=== PATIENT | female | born 1995 | race Caucasian/White ===

== ENCOUNTER 2017-08-04 14:56 | Emergency (ER) | payer MEDICAID ==
--- NOTE | 2017-08-04 15:23 | ED Physician Chart ---
ED Chief Complaint/HPI - Patient Information Date Seen:: 08/04/17 Time Seen:: 15:18 Chief Complaint:: pelvic pain History of Present Illness:: pt here for pains at low mid pelvis and into low back cramps. pt is 3 mo gravid. she took tylenol 3 hrs ago with some relief. she is taking a daily mvi. she had similar pains 1 month ago or so while living in [place] and has a US and then a repeat 1 week later...both times she was give the dx of threatened . pt has now moved to this area but still has no skein bander or appt to see one. ...her first was by for delayed cx dilatation. no fever. no vag dc. no dysuria, no n/v/d. no cp. no sob. (hx confirmed w rubber goods supervisor by phone) Historian:: Patient ED Review of Systems - Review of Systems General/Constitutional: No fever, No chills, No weight loss, No weakness, No diaphoresis, No edema, No loss of appetite Skin: No skin lesions, No rash, No bruising Head: No headache, No light-headedness Eyes: No loss of vision, No pain, No diplopia ENT: No earache, No nasal drainage, No sore throat, No tinnitus Neck: No neck pain, No swelling, No thyromegaly, No stiffness, No mass noted Cardio Vascular: No chest pain, No palpitations, No PND, No orthopnea, No edema Pulmonary: No SOB, No cough, No sputum, No wheezing GI: No nausea, No vomiting, No diarrhea, Pain, No melena, No hematochezia, No constipation, No hematemesis G/U: No dysuria, No frequency, No hematuria Microfilming Document Preparer: No vaginal discharge, No abnormal vaginal bleed, No contraction Musculoskeletal: No bone or joint pain, No back pain, No muscle pain Endocrine: No polyuria, No polydipsia Psychiatric: No prior psych history, No depression, No anxiety, No suicidal ideation Hematopoietic: No bruising, No lymphadenopathy Allergic/Immuno: No urticaria, No angioedema Neurological: No syncope, No focal symptoms, No weakness, No paresthesia, No headache, No seizure, No dizziness, No confusion, No vertigo ED Past Medical History - Past Medical History Past Medical History: Other (, c setion.) Social History: Surgical History: Medication: Reviewed Family Medical History - Family Member Mother History Unknown: Yes ED Physical Exam - Physical Examination General/Constitutional: Awake, Well-developed, well-nourished, Alert, No distress, GCS 15, Non-toxic appearing, Ambulatory Other Gen/Cons comments:: mildly overweight. alert. nad. nontoxic. ambulatory. wn/wh. good color. Head: Atraumatic Eyes: Lids, conjuctiva normal, PERRL, EOMI Skin: Nl inspection, No rash, No skin lesions, No ecchymosis, Well hydrated, No lymphadenopathy ENMT: External ears, nose nl, Nasal exam nl, Lips, teeth, gums nl Neck: Nontender, Full ROM w/o pain, No JVD, No nuchal rigidity, No bruit, No mass, No stridor Respiratory: Nl effort/Exclusion, Clear to Auscultation, No Wheeze/Rhonchi/Rales Cardio Vascular: RRR, No murmur, gallop, rubs, NL S1 S2 GI: No tenderness/rebounding/guarding, No organomegaly, No hernia, Normal BS's, Nondistended, No mass/bruits, No McBurney tenderness Other GI comments:: mild tndr low midline abd. uterous is palpable below umbilicus. seems nontndr. pos nabs. no rebound. : No CVA tenderness Extremities: No tenderness or effusion, Full ROM, normal strength in all extremities, No edema, Normal digits & nails Neuro/Psych: Alert/oriented, DTR's symmetric, Normal sensory exam, Normal motor strength, Judgement/insight normal, Mood normal, Normal gait, No focal deficits Misc: normal gait, Normal back, No paraspinal tenderness ED Labs/Radiology/EKG Results - Lab Results Results: Laboratory Tests 08/04/17 08/04/17 08/04/17 15:35 15:35 15:35 WBC 7.4 RBC 4.21 Hgb 12.5 Hct 36.1 MCV 85.7 MCH 29.7 MCHC Differential 34.7 RDW 12.5 Plt Count 172 MPV 9.0 Neutrophils % 65.9 Lymphocytes % 25.3 Monocytes % 7.3 Eosinophils % 1.0 Basophils % 0.5 Sodium 132 L Potassium 3.5 Chloride 106 Carbon Dioxide 22.6 Anion Gap 6.9 L BUN 9 Creatinine 0.5 L Est GFR ( Amer) > 60.0 Est GFR (Non-Af Amer) > 60.0 BUN/Creatinine Ratio 18.0 Glucose 102 Calcium 8.7 Total Bilirubin 0.2 L AST 11 L ALT 9 Alkaline Phosphatase 41 Total Protein 6.2 Albumin 3.5 L Globulin 2.7 Albumin/Globulin Ratio 1.3 Serum , Qual Urine Source CLEAN C Urine Color YELLOW Urine Clarity HAZY Urine pH 6.0 Ur Specific [place] 1.020 Urine Protein NEGATIVE Urine Glucose (UA) NEGATIVE Urine Ketones NEGATIVE Urine Blood NEGATIVE Urine Nitrate NEGATIVE Urine Bilirubin NEGATIVE Urine Urobilinogen 1.0 Ur Leukocyte Esterase NEGATIVE Urine RBC NONE SEEN Urine WBC NONE SEEN Ur Epithelial Cells NONE SEEN Urine Bacteria NONE SEEN 08/04/17 15:35 WBC RBC Hgb Hct MCV MCH MCHC Differential RDW Plt Count MPV Neutrophils % Lymphocytes % Monocytes % Eosinophils % Basophils % Sodium Potassium Chloride Carbon Dioxide Anion Gap BUN Creatinine Est GFR ( Amer) Est GFR (Non-Af Amer) BUN/Creatinine Ratio Glucose Calcium Total Bilirubin AST ALT Alkaline Phosphatase Total Protein Albumin Globulin Albumin/Globulin Ratio Serum , Qual POSITIVE H Urine Source Urine Color Urine Clarity Urine pH Ur Specific [place] Urine Protein Urine Glucose (UA) Urine Ketones Urine Blood Urine Nitrate Urine Bilirubin Urine Urobilinogen Ur Leukocyte Esterase Urine RBC Urine WBC Ur Epithelial Cells Urine Bacteria - Radiology Results Results: us pelvis- fetus seen w fhr 152 no hemorrhage. tech is concerned this could be a threatened ab ... ED Septic Shock - . Is Septic Shock (SBP<90, OR Lactate>4 mmol\L) present?: No ED Reassessment (Disposition) - Reassessment Reassessment:: results and plan dw pt w rubber goods supervisor present... social service reviewed how to get access to medical and skein bander clinics w [place]. ( [place]) advised pt pelvic rest. no heavy work. no nsaids. see skein bander dr in next wek or return if weak or heavy bleeding or worse pain. Reassessment Condition:: Improved - Diagnosis Diagnosis:: threatened 16 weeks gravid by US - Aftercare/Follow up Instructions Aftercare/Follow-Up Instructions:: Counseled pt regarding lab results/diagnosis & need follow up - Patient Disposition Discharge/Transfer:: Home Condition at Disposition:: Improved ED Discharge Plan - Patient Disposition Instructions: Threatened Miscarriage, [id number]
[2017-08-04] MEDS ORDERED: Sodium Chloride 0.9% 1,000 ML IV ONE (15:24)
[2017-08-04 15:46] LABS: % BASOPHILS 0.5 % (0.0-2.0); % LYMPHOCYTES 25.3 % (20.0-50.0); % MONOCYTES 7.3 % (2.0-10.0); % NEUTROPHILS 65.9 % (40.0-80.0); HEMATOCRIT 36.1 % (35.0-45.0); HEMOGLOBIN 12.5 gm/dL (11.7-15.5); MEAN CELL VOLUME 85.7 fl (81-100); MEAN CORPUSCULAR HEMOGLOBIN 29.7 pg (27.0-31.0); MEAN CORPUSCULAR HGB CONC 34.7 pg (28.0-36.0); NEUTROPHILE ABSOLUTE 4.9 Th/cmm (1.8-8.0); PLATELET COUNT 172 Th/cmm (150-400); RED BLOOD COUNT 4.21 Mil/cmm (3.80-5.10); RED CELL DISTRIBUTION WIDTH 12.5 % (11.5-20.0); WHITE BLOOD COUNT 7.4 Th/cmm (4.8-10.8)
[2017-08-04 16:07] LABS: ALB/GLOB RATIO 1.3 (1.0-1.8); ALKALINE PHOSPHATASE 41 U/L (34-104); ANION GAP 6.9 (7.0-16.0); BILIRUBIN,TOTAL 0.2 mg/dL (0.3-1.0); BUN - UREA NITROGEN 9 mg/dL (7-25); CALCIUM SERUM 8.7 mg/dL (8.6-10.3); CARBON DIOXIDE 22.6 mEq/L (21.0-31.0); CHLORIDE 106 mEq/L (98-107); CREATININE - SERUM 0.5 mg/dL (0.6-1.2); GLUCOSE 102 mg/dL (70-105); POTASSIUM SERUM 3.5 mEq/L (3.5-5.1); SGOT 11 U/L (13-39); SGPT/ALT 9 U/L (7-52); SODIUM SERUM 132 mEq/L (136-145)
[2017-08-04 16:32] LABS: URINE BILIRUBIN NEGATIVE (NEGATIVE); URINE COLOR YELLOW; URINE GLUCOSE (UA) NEGATIVE (NEGATIVE); URINE KETONE NEGATIVE (NEGATIVE)
[2017-08-04 16:33] LABS: URINE BLOOD NEGATIVE (NEGATIVE); URINE PROTEIN NEGATIVE (NEGATIVE)
[2017-08-04 16:34] LABS: URINE BACTERIA NONE SEEN /hpf (NONE SEEN); URINE EPITHELIAL CELLS NONE SEEN /lpf (FEW); URINE RBC NONE SEEN /hpf (0-5); URINE WBC NONE SEEN /hpf (0-5)
--- NOTE | 2017-08-05 08:18 | Diagnostic Imaging Report ---
OB ultrasound HISTORY: Pain The exam demonstrates a single intrauterine gestation with a breech presentation. motion and cardiac activity are noted (152 BPM). Detailed anatomic evaluation precluded due to the small size and early age. Amniotic fluid volume appears normal. Early placenta is in a posterior location. A small amount of fluid is noted within the endocervical canal. Significance should be correlated clinically. Measurements: Biparietal diameter equals 3.14 cm equals 15 weeks 6 days Head circumference equals 11.7 cm equals 15 weeks 5 days Abdominal circumference equals 10.3 cm equals 16 weeks 2 days Femur length equals 1.8 cm equals 15 weeks 3 days IMPRESSION: 1. Single intrauterine gestation with an approximate age of 16 weeks 0 days +/- 8 days 2. Small amount of fluid within the endocervical canal. The significance should be correlated clinically.
== END 2017-08-04 17:20 | disposition home or self-care (01) ==
LOC: ER 14:56
DX: O20.0 Threatened abortion (principal); Z3A.16 16 weeks gestation of pregnancy
CPT/HCPCS: 36415-UA; 76856-TC; 80053-TC; 81001-TC; 81025-TC; 84703-TC; 85025-TC; J7030

== ENCOUNTER 2017-08-17 13:58 | Emergency (ER) | payer MEDICAID ==
[2017-08-17] MEDS ORDERED: Acetaminophen 500 MG TAB PO ONE (14:30)
--- NOTE | 2017-08-17 14:36 | ED Physician Chart ---
ED Chief Complaint/HPI - Patient Information Date Seen:: 08/17/17 Time Seen:: 14:22 Chief Complaint:: BACK PAIN History of Present Illness:: THIS IS A 22 YO FEMALE WHO IS 14 MONTHS WHO BENT OVER TODAY AND SUDDENLY HAD PAIN OF TRYING TO STRAIGHTEN BACK UP. SHE NOW CONCERNED ABOUT HER BACK PAIN SINCE THE FALL. SHE DENIES VAGINAL BLEEDING OR WATER COMING OUT OF THE VAGINA. Allergies:: Allergies Allergy/AdvReac Type Severity Reaction Status Date / Time No Known Allergies Allergy Verified 08/04/17 15:21 Vitals:: Vital Signs - 8 hr 08/17/17 14:16 Temp 98.9 F HR 78 RR 17 BP 105/67 O2 Sat % 100 Historian:: Patient Review:: Nurse's Note Reviewed ED Review of Systems - Review of Systems General/Constitutional: No fever, No chills, No weight loss, No weakness, No diaphoresis, No edema, No loss of appetite Skin: No skin lesions, No rash, No bruising Head: No headache, No light-headedness Eyes: No loss of vision, No pain, No diplopia ENT: No earache, No nasal drainage, No sore throat, No tinnitus Neck: No neck pain, No swelling, No thyromegaly, No stiffness, No mass noted Cardio Vascular: No chest pain, No palpitations, No PND, No orthopnea, No edema Pulmonary: No SOB, No cough, No sputum, No wheezing GI: No nausea, No vomiting, No diarrhea, No pain, No melena, No hematochezia, No constipation, No hematemesis G/U: No dysuria, No frequency, No hematuria Musculoskeletal: No bone or joint pain, Back pain, No muscle pain Endocrine: No polyuria, No polydipsia Psychiatric: No prior psych history, No depression, No anxiety, No suicidal ideation Hematopoietic: No bruising, No lymphadenopathy Allergic/Immuno: No urticaria, No angioedema Neurological: No syncope, No focal symptoms, No weakness, No paresthesia, No headache, No seizure, No dizziness, No confusion, No vertigo ED Past Medical History - Past Medical History Obtainable: Yes Past Medical History: No significant medical hx Family History: None Social History: Non Smoker, No Alcohol, No Drug Use Surgical History: None Psychiatricy History: None Medication: Reviewed Family Medical History - Family Member Mother History Unknown: Yes ED Physical Exam - Physical Examination General/Constitutional: Awake, Well-developed, well-nourished, Alert, No distress, GCS 15, Non-toxic appearing, Ambulatory Head: Atraumatic Eyes: Lids, conjuctiva normal, PERRL, EOMI Skin: Nl inspection, No rash, No skin lesions, No ecchymosis, Well hydrated, No lymphadenopathy ENMT: External ears, nose nl, Nasal exam nl, Lips, teeth, gums nl Neck: Nontender, Full ROM w/o pain, No JVD, No nuchal rigidity, No bruit, No mass, No stridor Respiratory: Nl effort/Exclusion, Clear to Auscultation, No Wheeze/Rhonchi/Rales Cardio Vascular: RRR, No murmur, gallop, rubs, NL S1 S2 GI: No tenderness/rebounding/guarding, No organomegaly, No hernia, Normal BS's, Nondistended, No mass/bruits, No McBurney tenderness : No CVA tenderness Extremities: No tenderness or effusion, Full ROM, normal strength in all extremities, No edema, Normal digits & nails Neuro/Psych: Alert/oriented, DTR's symmetric, Normal sensory exam, Normal motor strength, Judgement/insight normal, Mood normal, Normal gait, No focal deficits Misc: No paraspinal tenderness Other Misc comments:: LOWER BACK MILD SPASMS NOTED ED Labs/Radiology/EKG Results - Radiology Results Results: PELVIC ULTRASOUND = NAD ED Assessment - Assessment General Assessment: BACK STRAIN ED Septic Shock - . Is Septic Shock (SBP<90, OR Lactate>4 mmol\L) present?: No - <6hrs of presentation: Vital Signs: Vital Signs - 8 hr 08/17/17 14:16 Temp 98.9 F HR 78 RR 17 BP 105/67 O2 Sat % 100 ED Reassessment (Disposition) - Reassessment Reassessment Condition:: Improved - Diagnosis Diagnosis:: BACK STRAIN EARLY - Aftercare/Follow up Instructions Aftercare/Follow-Up Instructions:: Counseled pt regarding lab results/diagnosis & need follow up, Refer to Discharge Instructions, Counseled pt & family regarding lab results/diagnosis & need follow up - Patient Disposition Discharge/Transfer:: Home Condition at Disposition:: Improved ED Discharge Plan - Patient Disposition Admit/Discharge/Transfer: PT DISCHARGED HOME Condition at Disposition: Improved
[2017-08-17] MEDS ORDERED: Acetaminophen 500 MG TAB ONE (14:40)
--- NOTE | 2017-08-18 08:31 | Diagnostic Imaging Report ---
Exam: ultrasound. HISTORY: Trauma Findings: Real-time ultrasound examination of the fetus was performed in multiple planes. The study demonstrates of breech presentation single live intrauterine gestation. Placenta posterior grade 0. Cardiac activity 158 bpm. The cervix closed at 3 cm. The amount of amniotic fluid is normal. Serial measurements of BPD 3.7 cm HC 14.4 cm AC 12.2 cm FL 2.5 cm Corresponding to estimated gestational age of 17 weeks 2 days. anatomy was not evaluated. IMPRESSION: Single live intrauterine gestation with estimated age of the fetus of 17 weeks 2 days. EDC 01/21/2018 Clinical correlation follow-up dictation recommended.
== END 2017-08-17 15:39 | disposition home or self-care (01) ==
LOC: ER 13:58
DX: O26.892 Other specified pregnancy related conditions, second trimester (principal); S39.012A Strain of muscle, fascia and tendon of lower back, initial encounter; X58.XXXA Exposure to other specified factors, initial encounter; Y93.89 Activity, other specified; Y92.89 Other specified places as the place of occurrence of the external cause; Y99.8 Other external cause status; Z3A.17 17 weeks gestation of pregnancy
CPT/HCPCS: 76802-TC; Z7502; Z7610